=== PATIENT | male | born 1975 | race Caucasian/White ===

== ENCOUNTER 2017-07-20 06:39 | Inpatient (IN) ==
[2017-07-20 07:45] LABS: MANUAL DIFF NEEDED? NO
[2017-07-20 08:00] LABS: BASO% 0.1 % (0.0-0.8); EOS# 0.01 X1000 (0.0-0.7); HEMATOCRIT 51.2 % (42.0-52.0); HEMOGLOBIN 17.4 g/dL (14.0-18.0); IMM GRAN# 0.48 X1000 (0.0-0.04); IMM GRAN% 1.2 % (0.0-0.5); LYMPH# 0.46 X1000 (1.2-3.4); LYMPH% 1.2 % (20.5-51.1); MCH 29.1 PG (27-31); MCV 85.8 FL (81-99); MONO# 2.32 X1000 (0.11-0.59); MPV 9.8 FL (7.4-10.4); NEUT% 91.5 % (42.2-75.2); PLT 242 X1000 (130-400); RBC 5.97 XMIL (4.7-6.1)
[2017-07-20 08:01] LABS: UR AMPHETAMINES QUAL PRESUMPTIVE POSITIVE (NONE DETECT); UR BARBITUATES QUAL NONE DETECTED (NONE DETECT); UR BENZODIAZEPIN QUAL NONE DETECTED (NONE DETECT); UR COCAINE QUAL NONE DETECTED (NONE DETECT); UR MDMA QUAL NONE DETECTED (NONE DETECT); UR METHADONE QUAL PRESUMPTIVE POSITIVE (NONE DETECT); UR METHAMPHETAMINE QUAL PRESUMPTIVE POSITIVE (NONE DETECT)
[2017-07-20 08:02] LABS: UR CANNABINOIDS QUAL NONE DETECTED (NONE DETECT); UR OPIATES QUAL PRESUMPTIVE POSITIVE (NONE DETECT); UR OXYCODONE QUAL PRESUMPTIVE POSITIVE (NONE DETECT); UR PCP QUAL NONE DETECTED (NONE DETECT); UR TCA QUAL NONE DETECTED (NONE DETECT)
[2017-07-20 08:05] LABS: AGAP 10; ALBUMIN 3.8 g/dL (3.5-5.0); ALKALINE PHOSPHATASE 161 U/L (32-122); AMYLASE 38 U/L (20-200); BUN 8 mg/dL (8-22); CALCIUM 8.7 mg/dL (8.8-10.2); CHLORIDE 94 mmol/L (98-107); COSMO 264; GOT 278 U/L (10-34); GPT 97 U/L (10-44); LIPASE 15 U/L (13-60); POTASSIUM 3.7 mmol/L (3.5-5.1); SODIUM 132 mmol/L (136-145); TCO2 28 mmol/L (25-35); TOTAL PROTEIN 7.8 g/dL (6.3-8.3)
[2017-07-20 08:13] LABS: BILIRUBIN URINE 2+ (NEGATIVE); BLOOD URINE 2+ (NEGATIVE); CLARITY SL. CLOUDY (CLEAR); COLOR AMBER; GLUCOSE URINE NEGATIVE (NEGATIVE); LEUKOCYTES URINE 1+ (NEGATIVE); NITRITE URINE POSITIVE (NEGATIVE)
[2017-07-20 08:18] LABS: URINE CAST GRANULAR PRESENT /LPF; URINE CRYSTAL CA OXALATE PRESENT /HPF; URINE EPITHELIAL CELLS >10 /HPF (<10); URINE SOURCE CLEAN CATCH
[2017-07-20 08:29] LABS: URINE CULTURE PL NEEDED? NO; UROBILINOGEN URINE 3+(8 mg/dL)
--- NOTE | 2017-07-20 08:45 | Diag Imaging Result Doc PS360 ---
WRIST COMPLETE RIGHT - 07/20/2017 INDICATION: fx hx TECHNIQUE: Three views COMPARISON: None FINDINGS: There is a chronic fracture through the metaphysis of the distal radius, with surrounding callus and some periosteal reaction. This appears nondisplaced. No other fractures. IMPRESSION: Chronic, healing fracture of the distal radius. No complicating features. Electronically signed by Jas Cook 07/20/2017 8:42 AM
[2017-07-20] MEDS ORDERED: NS 1,000 ML ONE (09:16)
[2017-07-20] MEDS ORDERED: NS 1,000 ML IV ONE ×2 (09:29→09:39)
[2017-07-20] MEDS ORDERED: NS 1,000 ML IV SCH (11:37)
[2017-07-20] MEDS ORDERED: ZOFRAN IV PRN (11:37)
[2017-07-20] MEDS ORDERED: VANCOMYCIN IV PER PHARMACY MISC SCH (13:00)
[2017-07-20] MEDS ORDERED: ROCEPHIN 1 GM in NS 50 ML IV SCH (13:30)
--- NOTE | 2017-07-20 13:33 | Diag Imaging Result Doc PS360 ---
CHEST-2 VIEWS - 07/20/2017 INDICATION: Leukocytosis TECHNIQUE: COMPARISON: None FINDINGS: The lungs are normally expanded and clear. Heart size and mediastinal contours are normal. No pneumothorax or pleural effusion. IMPRESSION: Negative exam. Electronically signed by Jas Cook 07/20/2017 1:30 PM
[2017-07-20] MEDS ORDERED: VANCOMYCIN 2,000 MG in NS 500 ML IV ONE (15:00)
--- NOTE | 2017-07-20 16:12 | HISTORY AND PHYSICAL ---
CHIEF COMPLAINT: Nausea, vomiting. HPI: This is a 42-year-old male who presented to the ER complaining of generalized fatigue and nausea, vomiting for 3 weeks. He states that he has not been able to hold anything down during this time. He does state that through the last few days he has developed fever and chills that come and go. He denied a cough, shortness of breath, any issues. He was found to have a white count of 38.8 with a creatinine 1.3 and elevated LFTs. The patient states that he does use recreational drugs although he does not use IV drugs at this time. PAST MEDICAL HISTORY: He denies. PAST SURGICAL HISTORY: Denies. SOCIAL HISTORY: He smokes about half a pack a day. He does drink occasionally. He does use illicit drugs. He denies IV drug use at present. ALLERGIES: No known drug allergies. HOME MEDICATIONS: None. REVIEW OF SYSTEMS: A 14 point review of systems is discussed with patient with pertinent positives stated in HPI. He denied chest pain, palpitations, syncope, dizziness, any cough, shortness of breath, PND, orthopnea, any diarrhea, constipation, black or bloody vomitus, black or bloody stools, any hematuria, dysuria, frequency, urgency. PHYSICAL EXAMINATION: GENERAL: This is a 42-year-old male who is sitting up in the bed in no distress. VITAL SIGNS: Blood pressure is 102/54 with a heart rate of 86, respirations are 16, temperature is 98.7 degrees oral with room air saturations 99-100%. HEENT: Head is normocephalic, atraumatic. Pupils equal, round, react to light. EOMs are intact. Sclerae are anicteric. Mucous membranes are moist. NECK: Supple. Trachea midline. CARDIOVASCULAR: Regular rate and rhythm, S1, S2 appreciated. PULMONARY: Breath sounds are clear with no increased work of breathing noted. GASTROINTESTINAL: Abdomen is soft, nontender, nondistended with bowel sounds in all 4 quadrants. BACK: No CVAT. No spine tenderness. MUSCULOSKELETAL: Good range of motion of joints. EXTREMITIES: No clubbing, cyanosis, or edema. Calves are nontender. Pulses are palpable x4. NEUROLOGIC: He is alert and oriented x3. Cranial nerves 2-12 grossly intact. DIAGNOSTICS: WBC is 38.8 with hemoglobin 17, hematocrit 51 and platelets of 242,000. Sodium is 132, potassium 3.7, BUN is 8, creatinine 1.3 with a glucose of 124. Total bilirubin is 1.3 with AST 278, ALT 97 and alkaline phosphatase 161. Amylase and lipase are within normal limits. Urinalysis is positive for protein, blood, nitrites with 10-20 microscopic red blood cells, 10-20 microscopic white blood cells, 3+ bacteria. Urine drug screen is presumed positive for opiates, oxycodone, methadone, amphetamines, methamphetamines. Urine cultures and blood cultures are pending. ASSESSMENT: This is a 42-year-old male who presented to the emergency room with 3 weeks of nausea and vomiting. 1. Nausea, vomiting. 2. Leukocytosis. 3. Hyponatremia. 4. Acute kidney injury. 5. Acute hepatitis. 6. Presumed urinary tract infection. 7. Illicit drug use with a drug screen positive for multiple drugs. PLAN: He will be admitted to the hospital. We will give IV hydration with IV nausea medication as needed. Will obtain a hepatitis panel as well as repeat CBC and CMP in the morning. Will order abdominal ultrasound for in the morning. He will be NPO after midnight tonight. Will get a chest x-ray PA and lateral. As he does have a history of IV drug use although he stated not in the last few weeks we will go ahead and start with antibiotics of vancomycin dosed by pharmacy and any further antibiotics will be culture driven. Dictated by COLEEN Martinez for Octavio Dunlap MD cc: COLEEN Martinez MD
[2017-07-20] MEDS: LIBRIUM PO SCH (18:06)
[2017-07-20] MEDS ORDERED: PRILOSEC PO SCH (21:00)
[2017-07-21] MEDS: LIBRIUM PO SCH (00:14)
[2017-07-21 00:23] VITALS: BP 99/51
[2017-07-21] MEDS ORDERED: PRILOSEC PO SCH (07:00)
[2017-07-21] MEDS ORDERED: M.V.I.-12 10 ML, FOLIC ACID 1 MG, MAGNESIUM SULFATE 1 GM, THIAMINE 100 MG in NS 1,000 ML IV ONE (08:00)
[2017-07-21] MEDS ORDERED: VANCOMYCIN 1,600 MG in NS 250 ML IV SCH (09:00)
--- NOTE | 2017-07-21 09:28 | ECHO REPORT ---
ORDER DATE: 07/20/2017 PROCEDURE: A 2D echocardiogram. ECHOCARDIOGRAPHIC MEASUREMENTS: 1. Interventricular septum 0.8, left ventricular posterior wall 0.8, diastolic diameter 5.2, left atrium 3.7, aorta 3.4. 2. Normal left ventricular cavity size. Estimated ejection fraction of 60%. 3. Aortic valve leaflets are trileaflet. Mitral valve was normal. Tricuspid valve was normal. Pulmonic valve was normal. 4. Peak velocity across the aortic valve less than 2 m/sec by Doppler studies. There is no aortic stenosis or regurgitation. There is trace mitral regurgitation. Trace tricuspid regurgitation. Peak velocity across the tricuspid valve was 2.2 m/sec. 5. There is no aortic stenosis or regurgitation. 6. There is no pericardial effusion or obvious intracardiac mass or thrombus seen. cc: MD Annalise Kraus CRNP
--- NOTE | 2017-07-22 09:44 | PROVIDER DOCUMENTATION ---
This chart was entered by Amirah Tao Scribe, acting as scribe for Sinan Humphries MD. HPI-General Adult - General Chief Complaint: Nausea/Vomiting Stated Complaint: VOMITING Time Seen by Provider: 07/20/17 07:44 Source: patient Allergies/Adverse Reactions: Patient Allergies Allergy/AdvReac Type Severity Reaction Status Date / Time No Known Allergies Allergy Verified 07/20/17 06:47 Home Medications: Home Medication List Medication Instructions Recorded Confirmed Last Taken Type No Home Medications 12/03/14 07/20/17 Unknown History - History of Present Illness -Gen Adult Nature of Presenting Problems: 42 year old male presents to the ER with complaint of nausea and vomiting x 3 weeks. Pt states he has decreased energy with fever and chills that come and go. Pt denies IV drug use but admits recreational drug use. Denies chest pain at this time. Location of Pain/Injury: reports: generalized Onset/Duration: reports: other (3 weeks) Timing: reports: still present Associated Symptoms: reports: fever/chills, nausea, vomiting Review of Systems - Adult - REVIEW OF SYSTEMS - ADULT Constitutional: reports: chills, fever Eyes: reports: no symptoms reported Ears, Nose, Mouth & Throat: reports: no symptoms reported Cardiovascular: denies: chest pain, palpitations Respiratory: reports: no symptoms reported Gastrointestinal: reports: nausea, vomiting Genitourinary: reports: no symptoms reported Musculoskeletal: reports: no symptoms reported Integumentary: reports: no symptoms reported Neurological: reports: no symptoms reported Psychiatric: reports: no symptoms reported Endocrine: reports: no symptoms reported Hematologic/Lymphatic: reports: no symptoms reported Allergic/Immunologic: reports: no symptoms reported All Other Systems: Reviewed and Negative Past History - Adult - PAST MEDICAL HISTORY-ADULT Review of Records: reports: Nursing Assessment Review, Medications Reviewed - IMMUNIZATION STATUS Childhood Immunizations: See Nurse Assessment Flu Vaccine: See Nurse Assessment - FAMILY HISTORY Family History: reviewed, not pertinent - SOCIAL HISTORY Substance Use: amphetamines, opiates Physical Exam-General - CONSTITUTIONAL General Appearance: alert, no apparent distress - EYES Eyes: PERRL/EOMI, pink conjunctivae - HEAD, EARS, NOSE, MOUTH & THROAT HENMT: normocephalic/atraumatic, moist mucous membranes - NECK Neck: non-tender, normal inspection - RESPIRATORY Respiratory: lungs clear, normal breath sounds - CARDIOVASCULAR Cardiovascular: normal peripheral pulses, regular rate, rhythm - GASTROINTESTINAL (ABDOMEN) Abdominal Exam: non tender, soft - MUSCULOSKELETAL Extremity: normal range of motion, non-tender - SKIN Integumentary: normal color, warm/dry - NEUROLOGIC Neurologic: grossly normal, no motor/sensory deficits - PSYCHIATRIC Psych/Mental Status: normal mood/affect, normal thought content, normal thought process, oriented x 3 Progress - PLAN OF CARE/RESULTS Progress/Plan/Lab Results: Vital Signs - 8 hr 07/20/17 06:42 07/20/17 07:21 Temperature 98.5 F Pulse Rate 107 H Pulse Rate [Sitting] 100 H Pulse Rate [Standing] 110 H Pulse Rate [Supine] 95 H Respiratory Rate 18 Blood Pressure 110/65 Blood Pressure [Sitting] 106/71 Blood Pressure [Standing] 106/69 Blood Pressure [Supine] 99/66 O2 Sat by Pulse Oximetry 100 Laboratory Results - last 24 hr 07/20/17 07/20/17 07/20/17 07:40 07:40 07:40 WBC 38.86 H RBC 5.97 Hgb 17.4 Hct 51.2 MCV 85.8 MCH 29.1 MCHC 34.0 RDW Std Deviation 14.1 Plt Count 242 MPV 9.8 Immature Gran % (Auto) 1.2 H Neut % (Auto) 91.5 H Lymph % (Auto) 1.2 L [place] % (Auto) 6.0 Eos % (Auto) 0.0 Baso % (Auto) 0.1 Immature Gran # (Auto) 0.48 H Neut # (Auto) 35.55 H Lymph # (Auto) 0.46 L [place] # (Auto) 2.32 H Eos # (Auto) 0.01 Baso # (Auto) 0.04 Sodium 132 L Potassium 3.7 Chloride 94 L Carbon Dioxide 28 Anion Gap 10 BUN 8 Creatinine 1.3 H Estimated GFR/1.73 m2 > 60 BUN/Creatinine Ratio 6 Glucose 124 H Calculated Osmolality 264 Calcium 8.7 L Total Bilirubin 1.30 H AST 278 H ALT 97 H Alkaline Phosphatase 161 H Creatine Kinase 34 Total Protein 7.8 Albumin 3.8 Globulin 4.0 Albumin/Globulin Ratio 1.0 Amylase 38 Lipase 15 Urine Source Urine Color Urine Clarity Urine pH Ur Specific [place] Urine Protein Urine Ketones Urine Blood Urine Nitrite Urine Bilirubin Urine Urobilinogen Urine Microscopic RBC Urine WBC Urine Microscopic WBC Ur Epithelial Cells Urine Crystals Urine Bacteria Urine Casts Urine Glucose Urine Opiates Screen Ur Oxycodone Screen Urine Methadone Screen Ur Barbituates Screen Ur Tricyclics Screen Ur Phencyclidine Scrn Ur Amphetamines Screen U Methamphetamines Scrn Urine MDMA Screen U Benzodiazepines Scrn Urine Cocaine Screen U Cannabinoids Screen 07/20/17 07/20/17 07:47 07:47 WBC RBC Hgb Hct MCV MCH MCHC RDW Std Deviation Plt Count MPV Immature Gran % (Auto) Neut % (Auto) Lymph % (Auto) [place] % (Auto) Eos % (Auto) Baso % (Auto) Immature Gran # (Auto) Neut # (Auto) Lymph # (Auto) [place] # (Auto) Eos # (Auto) Baso # (Auto) Sodium Potassium Chloride Carbon Dioxide Anion Gap BUN Creatinine Estimated GFR/1.73 m2 BUN/Creatinine Ratio Glucose Calculated Osmolality Calcium Total Bilirubin AST ALT Alkaline Phosphatase Creatine Kinase Total Protein Albumin Globulin Albumin/Globulin Ratio Amylase Lipase Urine Source CLEAN CATCH Urine Color YAMIL Urine Clarity SL. CLOUDY A Urine pH 5.0 Ur Specific [place] 1.020 Urine Protein 3+(500 mg/dL) A Urine Ketones TRACE Urine Blood 2+ A Urine Nitrite POSITIVE A Urine Bilirubin 2+ A Urine Urobilinogen 3+(8 mg/dL) Urine Microscopic RBC 10-20 A Urine WBC 1+ A Urine Microscopic WBC 10-20 A Ur Epithelial Cells >10 A Urine Crystals CA OXALATE PRESENT Urine Bacteria 3+ Urine Casts GRANULAR PRESENT Urine Glucose NEGATIVE Urine Opiates Screen PRESUMPTIVE POSITIVE A Ur Oxycodone Screen PRESUMPTIVE POSITIVE A Urine Methadone Screen PRESUMPTIVE POSITIVE A Ur Barbituates Screen NONE DETECTED Ur Tricyclics Screen NONE DETECTED Ur Phencyclidine Scrn NONE DETECTED Ur Amphetamines Screen PRESUMPTIVE POSITIVE A U Methamphetamines Scrn PRESUMPTIVE POSITIVE A Urine MDMA Screen NONE DETECTED U Benzodiazepines Scrn NONE DETECTED Urine Cocaine Screen NONE DETECTED U Cannabinoids Screen NONE DETECTED Orders Category Date Time Status Saline Loc DIRECTED Care 07/20/17 07:28 Active NPO Diet 07/20/17 07:28 Active WRIST COMPLETE RIGHT [RAD] Stat Exams 07/20/17 07:58 Completed AMYLASE [CHEM] Stat Lab 07/20/17 07:40 Completed CBC WITH ELECTRONIC DIFF [HEME] Stat Lab 07/20/17 07:40 Completed CK PROFILE [SP CHEM] Stat Lab 07/20/17 07:40 Completed COMPREHENSIVE METABOLIC PANEL [CHEM] Stat Lab 07/20/17 07:40 Completed LIPASE [CHEM] Stat Lab 07/20/17 07:[address] W/POSS RFLX CULT [URINALYSIS] Stat Lab 07/20/17 07:47 Completed URINE CULTURE [RM] Routine Lab 07/20/17 08:[address]UG S[address]EN [address] Stat Lab 07/20/17 07:47 Completed 0.9% Sodium Chloride Inj [Ns] 1,000 ml Med 07/20/17 09:16 Discontinued .ROUTE As Directed 0.9% Sodium Chloride Inj [Ns] 1,000 ml Med 07/20/17 09:29 Active IV 999 mls/hr Result Diagrams: 07/20/17 07:40 07/20/17 07:40 Departure - Departure Date of Disposition Decision: 07/20/17 Time of Disposition Decision: 08:00 DIAGNOSIS: Drug abuse, Nausea & vomiting Disposition: AGAINST MEDICAL ADVICE 07 Certified Medical Emergency: Emergent Condition: Stable - Critical Care Note This patient required my direct & personal management of CC.: No Attestation - Physician/ BLANQUITA Attestation The physician spent face to face time with patient:: Yes Advanced Practice Provider documentation review:: Supervising physician onsite and consulted in the evaluation and care of this patient. The physician did have a face to face encounter with the patient. This chart was documented by the indicated scribe, (Amirah Tao, [place]) and accurately reflects the services I performed and decisions made by me, Sinan Humphries MD, as attested by the provider's signature.
[2017-07-22 11:19] LABS: HEPATITIS PROFILE ACUTE SEE COMMENTS
--- NOTE | 2017-07-22 12:11 | DISCHARGE SUMMARY ---
ADMISSION DATE: 07/20/2017 DISCHARGE DATE: 07/21/2017 DISCHARGE DIAGNOSES: 1. Patient apparently left against medical advice. Nurse notes that she checked on him around 2:30 a.m. Sometime after 3, he was no longer in the room. Unfortunately, he apparently left with his IV in place. 2. Leukocytosis. White count was 38,000. Certainly would have preferred patient to have stayed in the hospital for a longer period of time for treatment, although as noted, he left against medical advice. 3. Hyponatremia. 4. Acute kidney injury. 5. Acute hepatitis. 6. History of IV drug use. BRIEF HOSPITAL COURSE: Patient is a 42-year-old male who was admitted to the hospital. We started him on antibiotics. Had attempted to check his hepatitis. Patient, however, decided to leave the hospital without making the staff aware. cc: Octavio Dunlap MD
[2017-07-24 08:18] LABS: HCV BY PCR SEE COMMENTS; HCV CHARGE YES
== END 2017-07-21 06:00 | disposition left against medical advice (07) ==
LOC: P.MEDSURG 06:39 → P.ED 06:39 → OBSVTOIN 10:13
PROVIDERS: ATTEND Family Medicine